=== PATIENT | female | born 1985 | race Caucasian/White ===

== ENCOUNTER 2024-10-06 15:36 | Outpatient (CLI) | payer BC, SELFPAY | END 2024-10-06 15:37 | disposition home or self-care (01) | PROVIDERS: PCP Registered Nurse; Visit Provider Registered Nurse | DX: F41.9 Anxiety disorder, unspecified (principal); F32.A Depression, unspecified; R53.83 Other fatigue | CPT/HCPCS: 82728; 84443 ==